=== PATIENT | male | born 1995 | race Asian ===

== ENCOUNTER 2017-01-28 01:44 | Inpatient (IN) | payer OTHER, SELFPAY ==
[~2017-01-28 01:44] MED LIST: ISOVUE-370 76%-LOCM 1 ML ONE; Iopamidol 370 76% 50 ML VIAL FS ONE
[2017-01-28 02:09] LABS: #Basophils 0.1 thou/uL (0.0-0.2); #Eosinphils 0.1 thou/uL (0.0-0.7); #Lymphocytes 3.5 thou/uL (1.20-3.40); #Monocytes 0.2 thou/uL (0.11-0.59); #Neutrophils 8.2 thou/uL (1.40-6.50); %Basophils 0.8 % (0.0-1.0); %Lymphocytes 28.6 % (21.0-51.0); Hematocrit 27.4 % (42.0-52.0); Mean Platelet Volume 7.3 fL (7.4-10.4); Red Blood Cell (RBC) Count 2.91 mill/uL (4.70-6.10); White Blood Cell (WBC) Count 12.1 thou/uL (4.8-10.8)
[2017-01-28 02:13] LABS: ALT (SGPT) 218 U/L (8-55); AST (SGOT) 318 U/L (5-34); Alkaline Phosphatase 62 U/L (40-150); Anion Gap 16 mmol/L (10-20); BUN (Urea Nitrogen) 10 mg/dL (8.9-20.6); Bilirubin, Total 0.3 mg/dL (0.2-1.2); Calc. Creatinine Clearance 0 mL/min (70-130); Calcium 6.2 mg/dL (7.8-10.44); Carbon Dioxide 11 mmol/L (22-29); Chloride 116 mmol/L (98-107); Estimated GFR-MDRD Greater than 90; Globulin 1.6 g/dL (2.4-3.5); Protein, Total 3.4 g/dL (6.0-8.3)
[2017-01-28 02:17] LABS: Prothrombin Time 33.4 SEC (12.0-14.7)
[2017-01-28 02:18] LABS: PTT 104.8 SEC (22.9-36.1)
[2017-01-28 02:20] LABS: Lactic Acid - Sepsis 12.2 mmol/L (0.5-2.2)
[2017-01-28 02:23] LABS: Anion Gap 13 mmol/L (-14-95); Critical Call POC Critical Value; POC Est. GFR-MDRD-African-Amer Greater than 60 (2-60); POC Estimated GFR-MDRD Greater than 60 (2-60); T. Carbon Dioxide 18.3 mmol/L (1.0-85.0); pH (Venous) 7.069 (7.35-7.45); vO2 Saturation-calc 80.1 % (0.0-100.0)
[2017-01-28] MEDS ORDERED: Tranexamic Acid 1,000 MG in Sodium Chloride 0.9% 250 ML 250 ML IVPB SCH (02:30)
[2017-01-28] MEDS ORDERED: Sodium Bicarbonate 150 MEQ in Dextrose 5% in Water 1,000 ML IV SCH ×2 (02:45)
[2017-01-28] MEDS ORDERED: HumaLOG 300 UNITS/3 ML VIAL SC PRN (03:10)
[2017-01-28] MEDS ORDERED: Dextrose 50% Abboject 50 ML SYRINGE SLOW IVP PRN (03:10)
[2017-01-28] MEDS ORDERED: Ondansetron HCl/PF 4 MG/2 ML Vial IVP PRN (03:10)
[2017-01-28] MEDS ORDERED: Dextrose 5% in Water 1,000 ML IV PRN (03:10)
[2017-01-28] MEDS ORDERED: Ondansetron ODT 4 MG TAB PO PRN (03:10)
[2017-01-28 03:15] LABS: Sodium 142 mmol/L (135-148)
[2017-01-28] MEDS ORDERED: Sodium Bicarb 50 MEQ/50 ML Abboject 8.4% SYRINGE ONE (03:17)
[2017-01-28] MEDS ORDERED: Fentanyl 100 MCG/2 ML VIAL ONE ×2 (03:20→04:01)
[2017-01-28 03:23] LABS: Anion Gap 12 mmol/L (-14-95); Critical Call POC Critical Value; Lactate 4.45 mmol/L (0.50-2.20); POC Est. GFR-MDRD-African-Amer Greater than 60 (2-60); POC Estimated GFR-MDRD Greater than 60 (2-60); T. Carbon Dioxide 25.9 mmol/L (1.0-85.0); pH (Venous) 7.329 (7.35-7.45)
[2017-01-28 03:39] LABS: Oxyhemoglobin 97.9 % (94.0-97.0); Sodium 148 mmol/L (135-148)
[2017-01-28] MEDS ORDERED: Adacel (T-DAP) 0.5 ML VIAL ONE (03:45)
[2017-01-28 03:56] LABS: Prothrombin Time 17.4 SEC (12.0-14.7)
[2017-01-28 03:57] LABS: Bilirubin Negative (Negative); Blood, Urine Large (Negative); Glucose, Urine (Dipstick) 250 mg/dL (Negative); Ketone, Urine Negative (Negative); Nitrite Negative (Negative); Protein, Urine (Dipstick) 100 mg/dL (Neg-Trace); Urobilinogen 0.2 mg/dL (0.2-1.0)
[2017-01-28 04:01] LABS: Bacteria/HPF None Seen HPF (None Seen); Hyaline Casts/LPF 0-3 HYALINE CAST LPF (0-3 Hyaline); RBC/HPF GREATER THAN 50-TNTC HPF (0-3); Squamous Epithelial None Seen HPF (0-3); WBC/HPF 21-50 HPF (0-3)
[2017-01-28 04:01] LABS: Modified Allen's Test POSITIVE; Vent YES
[2017-01-28 04:02] LABS: Mechanical Tidal Volume 400 ml; Mode SIMV; Pressure Support 10 cmH2O
[2017-01-28 04:03] LABS: Mechanical Tidal Volume 500 ml; Mode SIMV; Modified Allen's Test POSITIVE; Pressure Support 10 cmH2O; Vent YES
[2017-01-28 04:12] LABS: Acetaminophen Less than 6.0 mcg/mL (10.0-30.0); Anion Gap 22 mmol/L (10-20); BUN (Urea Nitrogen) 10 mg/dL (8.9-20.6); Calc. Creatinine Clearance 0 mL/min (70-130); Calcium 8.5 mg/dL (7.8-10.44); Carbon Dioxide 22 mmol/L (22-29); Chloride 107 mmol/L (98-107); Estimated GFR-MDRD Greater than 90; Phosphorus 4.1 mg/dL (2.3-4.7); Salicylate Less than 8.0 mg/dL (15.0-30.0)
[2017-01-28 04:19] LABS: Amphetamine Not Detected (NotDetected); Methadone Not Detected (NotDetected); Methamphetamine Not Detected (NotDetected)
[2017-01-28 04:23] LABS: Hematocrit 28.8 % (42.0-52.0); Mean Platelet Volume 7.3 fL (7.4-10.4); Red Blood Cell (RBC) Count 3.09 mill/uL (4.70-6.10); White Blood Cell (WBC) Count 7.5 thou/uL (4.8-10.8)
[2017-01-28 05:09] LABS: Band 17 % (5-11); Neutrophil 63 % (42-75)
[2017-01-28 05:11] VITALS: BP 97/51
[2017-01-28] MEDS ORDERED: Sodium Chloride 0.9% 500 ML IVPB PRN (05:34)
[2017-01-28 05:38] LABS: Oxyhemoglobin 98.2 % (94.0-97.0); Sodium 149 mmol/L (135-148)
[2017-01-28 05:39] LABS: Mechanical Tidal Volume 500 ml; Mode SIMV; Modified Allen's Test NOT DONE; Pressure Support 10 cmH2O; Vent YES
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
[2017-01-28 05:56] VITALS: BMI 18.4
[2017-01-28] MEDS ORDERED: Calcium Chloride 1 GM/10 ML Abboject SYRINGE IVP SCH (06:00)
[2017-01-28] MEDS ORDERED: Fentanyl 100 MCG/2 ML VIAL SLOW IVP SCH (06:00)
[2017-01-28] MEDS ORDERED: Calcium Chloride 1 GM/10 ML Abboject SYRINGE ONE (06:04)
[2017-01-28 06:15] LABS: Anion Gap 17 mmol/L (10-20); BUN (Urea Nitrogen) 10 mg/dL (8.9-20.6); Calc. Creatinine Clearance 83 mL/min (70-130); Calcium 7.8 mg/dL (7.8-10.44); Carbon Dioxide 23 mmol/L (22-29); Chloride 113 mmol/L (98-107); Estimated GFR-MDRD Greater than 90; Magnesium 1.8 mg/dL (1.6-2.6); Phosphorus 3.2 mg/dL (2.3-4.7)
--- NOTE | 2017-01-28 06:26 | OP ---
PREOPERATIVE DIAGNOSES: Multiple pelvic fractures with massive retroperitoneal/ pelvic hemorrhage. CHIEF OF HOSPITAL MEDICINE: Shelton Bo M.D. COLLECTION MANAGER: Ronny. POSTOPERATIVE DIAGNOSES: Multiple pelvic fractures with massive retroperitoneal /pelvic hemorrhage. ANESTHESIA: Intravenous sedation on the ventilator. PROCEDURES PERFORMED: 1. Ultrasound guided access right common femoral artery. 2. Aortogram with iliofemoral runoff. 3. Selective left hypogastric angiogram. 4. Selective left renal angiogram. 5. Selective right renal angiogram. FINDINGS/INTERPRETATION: 1. No contrast extravasation in the distributions of each common iliac, external iliac, or internal iliac arteries. 2. Normal right and left renal angiograms with no contrast extravasation. DESCRIPTION OF PROCEDURE: The patient was taken from the emergency room to the angiography suite. He was already intubated and on the ventilator with ongoing intravenous sedation. The patient was prepped and draped in the usual sterile fashion. Using ultrasound guidance, right femoral artery was easily accessed with the 5-Palestinian micropuncture needle, guidewire and sheath. This was up- sized to a standard short 5-Palestinian sheath. [employer] guidewire and Contra cath were passed. Aortogram was performed. Catheter was positioned just above the bifurcation and iliofemoral runoff performed. Bifurcation was negotiated with the existing catheter and guidewire. Catheter, however, would not track distally. Catheter was exchanged for an angled glide cath. Angled glide cath was able to be positioned in the left hypogastric artery. Selective left hypogastric angiogram was performed. The guidewire and catheter were withdrawn with catheter tip parked just above the right common iliac artery bifurcation. Angiogram was performed at this location demonstrating no contrast extravasation from the right hypogastric artery. At this juncture, a call was received from Radiology with possible left renal artery pseudoaneurysm. The existing guidewire and angled glide cath were passed cephalad. Left renal artery ostium was able to be cannulated. Left renal angiogram was performed. Due to the angulation of the right renal artery, the angled glide cath was exchanged for a 4 Palestinian IM catheter. This catheter allowed selective engagement of the right renal artery. Right renal artery angiogram was performed. Findings as described above. Guidewire was repositioned and both guidewire and IM catheter were withdrawn. Sheath was secured in place with 2 silk sutures. No heparin was given. Blood loss negligible. Total contrast 44 mL. Fluoroscopy time 10.9 minutes. MTDD
[2017-01-28] MEDS ORDERED: Acetaminophen 1,000 MG in Premix Bag 1 BAG IVPB ONE (06:45)
[2017-01-28] MEDS ORDERED: cefTRIAXone\\ROCEPHIN 2 GM in Sodium Chloride 0.9% 100 ML IVPB SCH (07:00)
[2017-01-28] MEDS: Fentanyl 100 MCG/2 ML VIAL SLOW IVP PRN ×3 (07:05→08:25)
[2017-01-28] MEDS ORDERED: Sodium Chloride 0.9% 1,000 ML IV SCH (07:30)
[2017-01-28 07:42] VITALS: TEMP 102.3
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
[2017-01-28] MEDS ORDERED: Fentanyl 20 MCG/ML 250 ML ONE (08:31)
[2017-01-28] MEDS ORDERED: Fentanyl 20 MCG/ML 250 ML IVPB SCH (08:35)
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
--- NOTE | 2017-01-28 08:41 | RAD ---
AP VIEW RIGHT FEMUR: FINDINGS: AP view right femur demonstrates a fracture seen in the right acetabulum, as well as of the superior -inferior pubic ramus. The right femur itself is unremarkable with no evidence of fractures. IMPRESSION: Extensive right pelvic fractures with no evidence of a right femoral abnormality seen. POS: [facility]
--- NOTE | 2017-01-28 08:46 | CT ---
PRELIMINARY REPORT/[facility]/EMERGENCY AFTER HOURS PROCEDURE: EXAM: CT Left Lower Extremity Without Intravenous Contrast, Ankle CLINICAL HISTORY: 21 years old, male; Injury or trauma; Fall; Abrasion; Ankle; Left; Additional info: Pelvic scan done with 4 minute delay per doctor request TECHNIQUE: Axial computed tomography images of the left ankle without intravenous contrast. Coronal and sagittal reformatted images were created and reviewed. COMPARISON: No relevant prior studies available. FINDINGS: Bones/joints: There is a severely comminuted fracture of the distal fibula. There is a comminuted fr acture of the lateral aspect of the tibial diaphysis involving the articular surface. There are marycarmen rely comminuted fractures of the talus, calcaneus and navicular bone. There is a fracture of the cuboid b one. There also may be active hemorrhage in the medial aspect of mid foot and at the posterior aspec t of the ankle. There is dislocation of the talus. Soft tissues: There are multiple pockets of air in the soft tissues of the foot, ankle and lower leg . There diffuse soft tissue edema. There is skin irregularity in the medial aspect of the foot. It con tains high density material consistent with hematoma likely with active hemorrhage. IMPRESSION: 1. Fractures of the tibia and fibula. Severely comminuted fractures of the talus, calcaneus and whit cular bone. Fracture of the cuboid bone. Dislocation of the talus. 2. Apparent skin laceration in the medial aspect of the foot. 3. Multiple hematomas with suspected active hemorrhage. Thank you for allowing us to participate in the care of your patient. Dictated and Authenticated by: Raheem Tony MD 01/28/2017 4:02 AM Central Time ([place]) FINAL REPORT EMERGENT AFTER HOURS STUDY CT LEFT FOOT: IMPRESSION: I agree with the preliminary interpretation given by [facility]. Extensively comminuted and displaced fracture of the calcaneus with involvement of the posterior and middle subtalar joints. Extensive comminuted, displaced talar fracture with involvement of the pos terior subtalar joint. Multiple intraarticular bony fragments are present within the tibiotalar william nt, with a fat/fluid level noted. Questionable intraarticular gas within the tibiotalar joint, at i ts medial margin. Extensively comminuted, mildly displaced intraarticular fracture of the navicula. Fracture involving the lateral distal margins of the cuboid. There is dislocation of the talus wi th respect to both the tibia and the calcaneus. Intraarticular fracture involves the anterior stef n of the distal tibia. A comminuted, moderately displaced distal fibular fracture is seen. There i s extensive soft tissue hematoma and soft tissue gas. POS: [facility]
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
[2017-01-28] MEDS ORDERED: Magnesium Sulfate 4 GM in Sodium Chloride 0.9% 250 ML 250 ML IVPB SCH (09:00)
[2017-01-28] MEDS ORDERED: Lactated Ringer's 1,000 ML IV SCH (09:00)
--- NOTE | 2017-01-28 09:09 | RAD ---
RIGHT FOOT RADIOGRAPHS 2 VIEWS: DATE: 01/28/17. PROVIDED CLINICAL HISTORY: Trauma. FINDINGS: There is an extensively comminuted and depressed calcaneal fracture with probable intraarticular ext ension. Please correlate with subsequently performed CT examination. No definite additional fractu re. IMPRESSION: As above. POS: [facility]
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
--- NOTE | 2017-01-28 09:14 | RAD ---
RIGHT TIBIA AND FIBULA 2 VIEWS: FINDINGS: Some trauma board artifact overlies one of the views. Proximal tibia and fibula appear intact. Ext ensive fractures of the ankle including the distal fibula with some soft tissue gas suggesting assoc iated laceration. IMPRESSION: No evidence for acute proximal tibia or fibula fracture. Extensive injury to the ankle. POS: OFF
--- NOTE | 2017-01-28 09:25 | RAD ---
TWO VIEWS LEFT FOOT: 01/28/2017 PROVIDED CLINICAL HISTORY: Left foot pain, status post injury. FINDINGS: There is an extensively comminuted and depressed intraarticular calcaneal fracture. There is disloc ation of the talus, likely with respect to the distal tibia and possibly also with respect to the ca lcaneus. Additional comminuted mid foot fractures are suspected. Fracture of the distal fibula is partially visualized. IMPRESSION: Extensive hindfoot and midfoot fractures. Please correlate with subsequently performed CT. POS: [facility]
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
--- NOTE | 2017-01-28 09:28 | RAD ---
LEFT ANKLE 2 VIEWS: Date: 01/28/17 PROVIDED CLINICAL HISTORY: Left ankle pain status post injury. FINDINGS: Extensively comminuted fractures of the hindfoot and midfoot are demonstrated. Please correlate with subsequently performed CT examination. IMPRESSION: As above. POS: [facility]
--- NOTE | 2017-01-28 09:44 | RAD ---
PORTABLE AP CHEST: Date: 01/28/17 HISTORY: Endotracheal tube repositioning. Pneumothorax. COMPARISON: 01/28/17 at 0136 hours. FINDINGS: Backboard has been removed. Right subclavian central venous catheter and nasogastric tube are again noted in place. Nasogastric tube has been advanced. Tip overlies the fundus of the stomach. Endotrac heal tube has been withdrawn and the tip now overlies the T3-4 level and is above the level of the c anahi. Pacing devices overlie the chest bilaterally. Cardiac silhouette and pulmonary vasculature ar e within normal limits. There is a tiny left-sided pneumothorax visualized, which is visualized at t he lateral aspect of left mid lung zone. Minimal patchy density is seen at the medial left lung base , as well as in the right mid lung zone, which may be related to areas of aspiration pneumonitis or contusion. IMPRESSION: 1. Interval repositioning of the endotracheal tube which is located above the level of the joslyn. 2. Minimal linear and patchy densities in the right mid lung zone and at the medial left lung base which may be related to contusions or areas of aspiration pneumonitis. 3. Tiny left-sided pneumothorax which is identified at the left mid lung zone. POS: [facility]
[2017-01-28 09:51] LABS: PTT 35.8 SEC (22.9-36.1); Prothrombin Time 17.7 SEC (12.0-14.7)
[2017-01-28 09:53] LABS: #Lymphocytes 0.5 thou/uL (1.20-3.40); #Monocytes 0.6 thou/uL (0.11-0.59); #Neutrophils 7.3 thou/uL (1.40-6.50); %Eosinophils 0.2 % (0.0-10.0); %Lymphocytes 5.6 % (21.0-51.0); %Monocytes 7.5 % (0.0-10.0); Hematocrit 30.2 % (42.0-52.0); Mean Platelet Volume 7.3 fL (7.4-10.4); Red Blood Cell (RBC) Count 3.38 mill/uL (4.70-6.10); White Blood Cell (WBC) Count 8.5 thou/uL (4.8-10.8)
[2017-01-28] MEDS ORDERED: Lidocaine 1% (PF) 30 ML VIAL ONE (10:00)
[2017-01-28 10:06] LABS: Anion Gap 19 mmol/L (10-20); BUN (Urea Nitrogen) 12 mg/dL (8.9-20.6); Calc. Creatinine Clearance 81 mL/min (70-130); Calcium 9.1 mg/dL (7.8-10.44); Carbon Dioxide 19 mmol/L (22-29); Chloride 113 mmol/L (98-107); Estimated GFR-MDRD Greater than 90
--- NOTE | 2017-01-28 10:06 | CT ---
PRELIMINARY REPORT/[facility]/EMERGENCY AFTER HOURS PROCEDURE: EXAM: CT Chest With Intravenous Contrast CLINICAL HISTORY: 21 years old, male; Injury or trauma; Fall; Initial encounter; Abrasion; Patient HX: M22 presents to ed for fall. Ems reports pt jumped from a 4 story parking garage onto concrete. Ems reports unknown down time but reports pt was conscious upon their arrival. Ems reports pt was awake and moaning but a\T\o x0. 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 ; Additional info: Pelvic scan done with 4 minute delay per doctor request TECHNIQUE: Axial computed tomography images of the chest with intravenous contrast. Coronal and sagittal reformatted images were created and reviewed. COMPARISON: No relevant prior studies available. FINDINGS: Lungs: Patchy bilateral groundglass opacities and small consolidations that are more pronounced in t he right lung likely represent contusions. Pleural space: There is a small left pneumothorax. No effusion. Heart: Unremarkable. No cardiomegaly. No pericardial effusion. Mediastinum: There is a small amount of high density material in the esophagus and stomach. Etiology is uncertain. Bones/joints: No acute fracture. No dislocation. Soft tissues: There is a small amount of air adjacent to the left clavicle and in the left lower nec k. Vasculature: Unremarkable. No evidence of thoracic aortic injury. Lymph nodes: Unremarkable. No enlarged lymph nodes. Tubes, lines and devices: An endotracheal tube terminates in the left main bronchus. Nasogastric tub e extends into the stomach. IMPRESSION: 1. Small left pneumothorax. 2. Bilateral lung opacities consistent with contusions. 3. Endotracheal tube terminating in the left main bronchus. 4. Additional findings as above. THIS REPORT CONTAINS FINDINGS THAT MAY BE CRITICAL TO PATIENT CARE. The findings were verbally commu nicated via telephone conference with Dr. Hernandez at 3:37 AM CDT on 01/28/2017. The findings were ac knowledged and understood. Thank you for allowing us to participate in the care of your patient. Dictated and Authenticated by: Raheem Tony MD 01/28/2017 3:41 AM Central Time ([place]) Addendum created by Raheem Tony MD on 01/28/2017 4:51 AM Central Time ([place]) There is a compression fracture of the superior endplate of L5 without retropulsion. There is a nondisplaced fracture of the left pars interarticularis of L5 extending to the superior f acet and left pedicle. Reported to MARCELA Owen at 5:49 am ET. Initial Report created on 01/28/2017 4:28 AM Central Time ([place]) EXAM: CT Abdomen and Pelvis With Intravenous Contrast CLINICAL HISTORY: 21 years old, male; Injury or trauma; Fall; Initial encounter; Abrasion; Patient HX: M22 presents to ed for fall. Ems reports pt jumped from a 4 story parking garage onto concrete. Ems reports unknown down time but reports pt was conscious upon their arrival. Ems reports pt was awake and moaning but a\T\o x0. 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 ; Additional info: Pelvic scan done with 4 minute delay per doctor request TECHNIQUE: Axial computed tomography images of the abdomen and pelvis with intravenous contrast. Coronal and sagittal reformatted images were created and reviewed. COMPARISON: No relevant prior studies available. FINDINGS: Lower thorax: No acute findings. ABDOMEN: Liver: Unremarkable. Gallbladder and bile ducts: Unremarkable. No calcified stones. No ductal dilation. Pancreas: Unremarkable. Spleen: Unremarkable. Adrenals: Unremarkable. Kidneys and ureters: There is a 1.4 cm right renal laceration. There is a small collection of contra st material to the left of the aorta. Most of it abuts the left renal artery although it contacts th e left wall of the aorta (series 2 image 63). The collection measures 0.9 x 0.7 cm in largest cross- section. Stomach and bowel: The small bowel demonstrates prominent mucosal enhancement. Appendix: The appendix is not identified. PELVIS: Bladder: No contrast Extravasation from the urinary bladder is visible although underdistention limi ts evaluation. Reproductive: Unremarkable as visualized. ABDOMEN and PELVIS: Intraperitoneal space: No free fluid. No free air. Retroperitoneal space: There is a very large retroperitoneal hematoma predominantly on the right meghan e. Bones/joints: There is a severely comminuted fracture of the sacrum. There is widening of the left s acroiliac joint. There is a comminuted fracture of the right iliac bone. No dislocation. Soft tissues: The right gluteus muscle is enlarged and heterogeneous which is consistent with infilt rating hematoma. Vasculature: The inferior vena cava and iliac veins are nearly collapsed. Lymph nodes: Unremarkable. No enlarged lymph nodes. Tubes, lines and devices: There is a balloon catheter in the urinary bladder. Other findings: There are large pelvic hematomas that are apparently extraperitoneal. Delayed images demonstrate multiple areas of increased density in the hematomas. IMPRESSION: 1. Right renal laceration, grade 3. 2. Widespread comminuted pelvic fractures as described. 3. Large pelvic and retroperitoneal hematomas in multiple areas consistent with active hemorrhage, l ikely relatively low rate since they are only seen on delayed images. 4. Small pseudoaneurysm in the region of the left renal artery likely arising from renal artery (gra de III injury) and less likely from the aorta. 5. No evidence of urinary bladder injury. 6. Nearly collapsed inferior vena cava and iliac veins which is consistent with hypovolemia. 7. Prominent mucosal enhancement in the small bowel which represent shock bowel. 8. Details and additional findings as above. THIS REPORT CONTAINS FINDINGS THAT MAY BE CRITICAL TO PATIENT CARE. The findings were verbally commu nicated via telephone conference with Dr. Hernandez at 4:23 AM CDT on 01/28/2017. The findings were ac knowledged and understood. Thank you for allowing us to participate in the care of your patient. Dictated and Authenticated by: Raheem Tony MD 01/28/2017 4:28 AM Central Time ([place]) FINAL REPORT CT CHEST WITH CONTRAST CT ABDOMEN WITH CONTRAST CT PELVIS WITH CONTRAST CT LIMITED THORACIC SPINE WITH CONTRAST CT LIMITED LUMBOSACRAL SPINE WITH CONTRAST: IMPRESSION: The findings and impression are concordant with the preliminary report. In addition, there is a too th within the midthoracic esophagus series 3 image 28. There is active contrast extravasation adjac ent to the left renal artery. There is also active contrast extravasation within the pelvis. Right both column and pelvic fractures presented with comminuted complex zone II and III fractures bilate rally of the sacrum. Right superior end plate pubic rami fractures are present as well as fracture of the posterior column and anterior column. No left-sided acetabular fracture is appreciated. The re is an inferior pubic ramus fracture extending to the ischium on the left. There is anterior disp lacement of S2 relative to S1 approximately 2.6 cm. There is a sagittally oriented fracture through the pedicle of L5 on the left extending to the posterior vertebral body and left pars intraarticula ris. There is also a superior end plate fracture at L5. There is ankylosis of the T3 and T4 vert ebrae and posterior elements. There is abnormal hypoenhancement of the pancreatic head suggesting a contusion. There is also active hemorrhage along the right gluteus maximum muscles near the greate r sciatic foramen and lesser sciatic foramen with large volume contusions of the gluteus musculature bilaterally. There is also active hemorrhage along the right rectus abdominus sheath. There is li alexx tear of the fascia between the oblique muscle and right rectus muscles. The remainder of these findings were discussed in the preliminary report. CODE: CR. Dr. Pierce notified via telephone at 8:00 am. POS: GREER
[2017-01-28] MEDS ORDERED: Pantoprazole 40 MG VIAL IVP SCH (10:45)
[2017-01-28 10:47] LABS: Oxyhemoglobin 97.8 % (94.0-97.0); Sodium 148 mmol/L (135-148)
[2017-01-28 10:48] LABS: Mechanical Tidal Volume 500 ml; Mode SIMV; Pressure Support 10 cmH2O; Vent YES
--- NOTE | 2017-01-28 11:22 | PRG ---
DATE OF SERVICE: 01/28/2017 This is a 30 minute initial hospital visit note in which 30 minutes were spent in review of the imag ing, record, evaluation and examination of the patient, and formulation of a plan, 50% of the time w as spent counseling. CHIEF COMPLAINT: Lumbosacral and pelvic fracture status post fall from 4 stories. HISTORY OF PRESENT ILLNESS: The history from Mr. Gan is obtained from review of the record and d iscussion with our Trauma colleagues. He is a 21-year-old man with a possible suicide attempt. He sustained a L5 pars and facet fractures with substantial sacral pelvic injury. He was intubated and stabilized. The nursing team tells me that when sedation is lifted he does wiggle his toes and his fingers to command. I should note his cranial spinal imaging is otherwise negative for acute abnor mality. I am unable to get an exam of the patient due to sedation, although again the nurses had just comple eliana their evaluation this morning. I spoke with Dr. Pierce and the patient will be transferred for h [facility] level of care given his sacral pelvic injury. I would be in support of this. DIAGNOSES: 1. Sacral and pelvic fractures. 2. L5 fracture.
--- NOTE | 2017-01-28 12:03 | RAD ---
SINGLE VIEW OF THE CHEST: COMPARISON: 01/28/17. HISTORY: Pneumothorax. FINDINGS: A single view of the chest shows a normal-size cardiomediastinal silhouette. The endotracheal tube and NG tube are unchanged in position. The previously seen left side pneumothorax is not visualized on today's examination. There is no evidence of consolidation, mass, or pleural effusion. A right subclavian central venous catheter is unchanged in position. IMPRESSION: No evidence of acute cardiopulmonary disease. POS: GREER
--- NOTE | 2017-01-28 12:35 | DIS ---
DATE OF ADMISSION: 01/28/2017 DATE OF DISCHARGE: 01/28/2017 ADMITTING PHYSICIAN: Dr. Federico Zee. DISCHARGE PHYSICIAN: Dr. Juan J Pierce. CONSULTANTS: 1. Dr. Evin Hernandez with Neurosurgery. 2. Dr. Valdez with Orthopedic Trauma Service. 3. Dr. Shelton Bo with interventional Cardiothoracic Surgery. 4. Dr Mynor Corrales with OMFS ADMITTING DIAGNOSES: 1. Status post fall from unknown height. 2. Acute traumatic brain injury with cerebral concussion. 3. Small bilateral pneumothoraces. 4. Bilateral right greater than left pulmonary contusions. 5. Grade III right renal injury. 6. Left renal arterial pseudoaneurysm. 7. T3/T4 compression fractures. 8. L5 burst fracture. 9. S1/S2 fracture dislocation. 10. Comminuted right acetabular fracture. 11. Comminuted right inferior and superior pubic rami fractures. 12. Open bilateral tibia and fibular fractures. 13. Open bilateral multiple foot fractures. 14. Multiple bilateral midface and orbital fractures. 15. Acute blood loss anemia. 16. Acute posttraumatic respiratory failure. DISCHARGE DIAGNOSES: 1. Status post fall from unknown height. 2. Acute traumatic brain injury with cerebral concussion. 3. Small bilateral pneumothoraces. 4. Bilateral right greater than left pulmonary contusions. 5. Grade III right renal injury. 6. Left renal arterial pseudoaneurysm. 7. T3/T4 compression fractures. 8. L5 burst fracture. 9. S1/S2 fracture dislocation. 10. Comminuted right acetabular fracture. 11. Comminuted right inferior and superior pubic rami fractures. 12. Open bilateral tibia and fibular fractures. 13. Open bilateral multiple foot fractures. 14. Multiple bilateral midface and orbital fractures. 15. Acute blood loss anemia. 16. Acute posttraumatic respiratory failure. PROCEDURES PERFORMED: 1. Placement of arterial and central venous catheters by Dr. Zee. 2. Angiography of the aorta, hypogastric artery, and bilateral renal arteries by Dr. Shelton Bo. No interventions were performed. HISTORY AND HOSPITAL COURSE: This is a 21-year-old man who was found on the side of 4-story building. The patient apparently fell from a great height, although the accident was not witnessed. He was found at the scene unresponsive. Responding EMS was able to electively intubate the patient who was then transported by ground EMS to [facility] arriving in extremis. A level 1 trauma activation was initiated and shortly thereafter finding significant multiple external markers of trauma. Massive transfusion protocol was also initiated. Aggressive critical care resuscitation was continued throughout trauma workup. Patient received multiple units of blood and blood products including 9 units of packed red blood cells, 4 units of fresh frozen plasma, 1 unit of cryoprecipitate and one 6-pack of platelets. The patient's workup included unremarkable head and cervical spine CT scan. CT scan of the chest is reported with bilateral pulmonary contusions as well as small bilateral pneumothoraces. CT scan of the abdomen and pelvis was reported as remarkable for a grade 3 kidney injury with active contrast extravasation. Also noted, was left arterial pseudoaneurysm. Bilateral iliac arterial contrast extravasation was also noted. Bony reconstruction was significant for right inferior and superior pubic rami fractures, comminuted right acetabular fracture. There was a pancreatic head contusion. CT scan of the thoracic spine is remarkable for T3 and T4 compression fractures. CT scan of the lumbar spine reveals L5 burst fracture as well as S1 and S2 fracture dislocation. Initial laboratory workup included a CBC with 12,100 white blood cells, hemoglobin 9.2, hematocrit is 27.4, platelet count 148,000. PTT and INR at the time were noted at 104.8 seconds and 3.1 respectively. Patient was evaluated by Neurosurgery, who was uncomfortable managing the L5 and sacral fractures. The patient was also seen by Dr. Vasu Corrales from [facility]. An operative intervention of the face was contemplated at later date. Patient is seen by Dr. Valdez with Orthopedic Trauma Service and operative intervention through the distal lower extremity open fractures is being contemplated of washout. The patient did undergo a trip to the Interventional Radiology suite by Dr. Shelton Bo, we have no active contrast extravasation was noted requiring embolization. Following this, the patient was admitted to intensive care unit where his resuscitation was continued. It has become obvious that the patient' s complex pelvic and lumbar sacral fractures could not be managed here locally therefore reached out to [facility] for upper level of care transfer for this patient. The patient has been accepted and is being transferred to [facility] . Accepting Physician is Dr Guadarrama,Trauma Service . He is currently hemodynamically stable, sedated on mechanical ventilatory support. He has required no vasopressor or inotropic support. His urinary output is in excess of 0.5 mL per kilogram per hour. His current laboratory studies at the time of discharge include a CBC with 8500 white blood cells, hemoglobin 10.3, hematocrit is 30.2, platelet count is 73, 000. Current metabolic profile includes sodium 149, potassium is 3.8, chloride is 113, bicarbonate 23, BUN 10, creatinine is 0.96, glucose is 142. Repeat chest x-ray that I just obtained clearly reveals no pneumothoraces. Therefore, I have elected to avoid placement of a thoracostomy tubes despite the fact this patient is going to be transported by air as I am convinced that the previous small bilateral pneumothoraces were probably as a result of skin folds and not actual pneumothoraces. PLAN: Plan for this transfer is, authorized by the patient's mother by telephone conversation. DIPTI
[2017-01-29] MEDS ORDERED: Pantoprazole 40 MG VIAL IVP SCH (09:00)
--- NOTE | 2017-01-31 01:02 | HP ---
DATE OF ADMISSION: 01/28/2017 CHIEF COMPLAINT: Fall from estimated at 50 to 60 feet with multiple injuries and shock. HISTORY OF PRESENT ILLNESS: This patient is a 21-year-old male. He appeared to have jumped f rom fourth floor of a parking facility at [facility]. It is unknown when he had jumped. He was discovered on routine rounds by security personnel. Patient was intubated at the scene and transported to [facility] with full spinal precautions. I was contacted at about 2:00 and responded emergently. I was with this patient for ensuing 2-1/2 hours until he was taken to the In tensive Care Unit between 4:30 and 5:00 in the morning. PAST MEDICAL HISTORY: Unknown. PAST SURGICAL HISTORY: Unknown, but without evidence of obvious scars. MEDICATIONS: Unknown. ALLERGIES: Unknown. SOCIAL HISTORY: Unknown. PHYSICAL EXAMINATION: VITAL SIGNS: Upon arrival, the patient was tachycardic and hypotensive with blood pressure of appro ximately 80 systolic and heart rate of 140. The massive transfusion protocol had been initiated and transfusion was underway. HEENT: On examination, he had obvious facial swelling with some crepitus with his facial bones. He had blood coming from his mouth, his nose, and his ears. He was orotracheally intubated and cervic al collar was in place. LUNGS: Clear to auscultation. CARDIAC: Tachycardic but regular rhythm. ABDOMEN: Appeared to have some lower abdominal distention without gross evidence of injury. PELVIS: Appeared to be fractured on plain films, and therefore pelvic compression was not attempted . BACK: Atraumatic. RECTAL: Revealed no evidence of blood within the rectal vault. His prostate was not high riding. GENITALIA: Unremarkable. There was no blood at the meatus. Therefore, I cleared him for Dean cat heter placement, which was placed with initial visualization of blood-tinged urine. EXTREMITIES: Both of his feet were externally everted and there were open fractures with bone protr uding through the bottom of both of his feet. Pedal pulses were obtainable by Doppler bilaterally. There appeared to be extensive fractures involving both lower extremities, likely involving the fee t, ankles, and potentially lower leg. There is substantial bleeding from the right open wound. Chris rile gauze and compression dressing was applied emergently. X-RAYS: Chest x-ray revealed no obvious deformity involving the chest. His heart and lungs appeare d unremarkable. Plain film of the pelvis revealed obvious fractures involving the pelvis, which wer e better defined on later CT scan. LABORATORY DATA: Initial blood gas revealed severe acidosis with pH of 7.0, hemoglobin associated w ith this was 6. Chemistries revealed severe acidosis with a CO2 of 11 and lactate of 12. He had el evated liver function tests as well. Initial coagulation profile revealed coagulopathy with INR of 3.1. ASSESSMENT: Patient who appeared to have jumped from 50 to 60 feet in the air, sustaining severe fr acture dislocation of bilateral feet and ankles. He appeared to have pelvic fracture. He appeared to have facial fractures. He presented in shock with hypotension and this was suspected to be hypov olemic shock. PLAN: Plan was to attempt initial resuscitation and he can be stabilized appropriately obtain imagi ng within the CT scan. Central line was placed by emergency room physician as I was arriving. Naso gastric tube and Dean catheter were placed. The patient was removed from the spine board during ex amination of his back. Course of resuscitation as mentioned earlier, massive transfusion protocol has been initiated. The patient received initially 5 units of packed red blood cells, the first 2 of which were the O negati ve blood. Essentially began to receive FFP and platelets per protocol. When it is recognized he duncan s a pelvic fracture, we placed a pelvic binder and in between his transfusion and the pelvic binder, his blood pressure came up to the level that was felt to be safe to proceed with CT scan. CT scan of the brain revealed no obvious intracranial injury. Cervical spine appeared unremarkable as well. CT scan of the face revealed multiple facial fractures of the maxilla, mandible, orbits. CT scan of chest, abdomen, and pelvis revealed extensive pelvic fracture with a severe right acetabu lar fracture of the pubis, severe disruption of the sacrum bilaterally. There was an extensive retr operitoneal hematoma extending into the upper abdomen. There may have been some evidence of blood w ithin the abdomen as well. It is difficult to discern this because of the extent of the retroperito jeniffer hematoma. There was felt to be a right renal laceration by Radiology. No other solid organ in jury. There was concern regarding the left renal artery pseudoaneurysm. Chest was unremarkable. C T scan was also obtained at the lower extremities, revealing extensive fractures of the calcaneus, n avicular, talus, etc., resulting in an extensive bilateral ankle related fractures. Upon recognizing the extent of the retroperitoneal hematoma, Dr. Shelton Bo was contacted. I felt that the patient was stable enough to proceed with angiography and attempted pelvic embolization as appropriate. I did not feel that laparotomy would serve him well at this point. Dr. Betzy joseph usly presented and upon preparation of the catheterization lab, patient was taken there for emboliza tion. The patient did receive TXA early in his resuscitation. At the point that followup laboratory studi es showed that his hemoglobin was up to 10, platelet count appeared to be reasonable, his acidosis a ppeared to be resolving, the massive transfusion was suspended. Patient did receive cryoprecipitate as well as platelets, FFP, and packed red blood cells. I believe he received 8 units of packed red blood cells, 4 units of FFP, 1 unit of platelets, and 1 unit of cryoprecipitate. In the offset label rewinder, the patient had a small area of blush in his right hemipelvis, but it was difficult to discern the extent if this was not felt to be amenable to embolization. The left renal artery w as inspected and found to be without obvious abnormality in spite of the suggestion on the CT scan. With the patient's resuscitation, his hypotension has entirely resolved and at several points, he wa s given fentanyl which helped to control his tachycardia. His tachycardia would frequently run in 1 40s to 150s, but with fentanyl would drop down to 120s. The patient was taken from the offset label rewinder to the Intensive Care Unit, still intubated and with his fem oral artery sheath in place. It was recognized that he would require washout of his open fracture o f the feet at some point, but for now he felt that it was better to ensure that he was stable and wa rm. He had active warming at all times during his resuscitation both with warm blankets as well as Hilaria Hugger. His final injuries were felt to be severe comminuted open fractures of bilateral ankle s, severe pelvic fracture, multiple extensive facial fractures. There was noted to be a renal lacer ation.
== END 2017-01-28 11:20 | disposition short-term general hospital (02) | DRG 963 ==
LOC: ERS 01:44 → EDBD 01:44 → CCL 04:47 → CCU 05:03
PROVIDERS: ADMIT Specialist; ATTEND Specialist
PROC: B41D1ZZ Fluoroscopy of Aorta and Bilateral Lower Extremity Arteries using Low Osmolar Contrast (ICD-10-PCS; principal; 2017-01-28)
PROC: 5A1935Z Respiratory Ventilation, Less than 24 Consecutive Hours (ICD-10-PCS; 2017-01-28)
PROC: B4181ZZ Fluoroscopy of Bilateral Renal Arteries using Low Osmolar Contrast (ICD-10-PCS; 2017-01-28)
PROC: 30233N1 Transfusion of Nonautologous Red Blood Cells into Peripheral Vein, Percutaneous Approach (ICD-10-PCS; 2017-01-28)
PROC: 30233K1 Transfusion of Nonautologous Frozen Plasma into Peripheral Vein, Percutaneous Approach (ICD-10-PCS; 2017-01-28)
PROC: 30233R1 Transfusion of Nonautologous Platelets into Peripheral Vein, Percutaneous Approach (ICD-10-PCS; 2017-01-28)
DX: S06.0X9A Concussion with loss of consciousness of unspecified duration, initial encounter (principal); T79.4XXA Traumatic shock, initial encounter; S32.82XA Multiple fractures of pelvis without disruption of pelvic ring, initial encounter for closed fracture; S37.039A Laceration of unspecified kidney, unspecified degree, initial encounter; S32.401A Unspecified fracture of right acetabulum, initial encounter for closed fracture; S82.831B Other fracture of upper and lower end of right fibula, initial encounter for open fracture type I or II; J96.00 Acute respiratory failure, unspecified whether with hypoxia or hypercapnia; S27.322A Contusion of lung, bilateral, initial encounter; S22.039A Unspecified fracture of third thoracic vertebra, initial encounter for closed fracture; I95.9 Hypotension, unspecified; S32.10XA Unspecified fracture of sacrum, initial encounter for closed fracture; S27.0XXA Traumatic pneumothorax, initial encounter; S82.832B Other fracture of upper and lower end of left fibula, initial encounter for open fracture type I or II; S32.9XXA Fracture of unspecified parts of lumbosacral spine and pelvis, initial encounter for closed fracture; S22.049A Unspecified fracture of fourth thoracic vertebra, initial encounter for closed fracture; S32.051A Stable burst fracture of fifth lumbar vertebra, initial encounter for closed fracture; S32.591A Other specified fracture of right pubis, initial encounter for closed fracture; D62 Acute posthemorrhagic anemia; S82.302B Unspecified fracture of lower end of left tibia, initial encounter for open fracture type I or II; S82.301B Unspecified fracture of lower end of right tibia, initial encounter for open fracture type I or II; S36.892A Contusion of other intra-abdominal organs, initial encounter; Y92.481 Parking lot as the place of occurrence of the external cause; I72.2 Aneurysm of renal artery; S02.82XA Fracture of other specified skull and facial bones, left side, initial encounter for closed fracture; S02.81XA Fracture of other specified skull and facial bones, right side, initial encounter for closed fracture; S02.612A Fracture of condylar process of left mandible, initial encounter for closed fracture; S02.611A Fracture of condylar process of right mandible, initial encounter for closed fracture; S02.609A Fracture of mandible, unspecified, initial encounter for closed fracture
CPT/HCPCS: 29515; 36246; 36252; 36415; 36430; 36556; 51702; 70450; 70486; 71010; 71260; 72125; 72170; 74177; 75630; 75726; 76942; 80053; 80306; 80307; 81003; 81015; 82330; 82533; 82803; 82805; 83605; 83735; 84100; 85025; 85384; 85610; 85730; 86850; 86900; 86901; 90471; 90715; 93005; 93010; 94002; 96365; 96374; 96375; 99152; 99153; 99292; C1725; C1769; G0390; J0131; J0696; J1644; J2001; J3010; J3475; J7050; J7070; P9012; P9016; P9035; P9048; P9059